=== PATIENT | male | born 1950 | race Caucasian/White ===

== ENCOUNTER → 2023-09-30 16:31 | Outpatient (AMB) | payer OTHER, SELFPAY ==
--- NOTE | 2023-09-30 16:33 | AM.OFFWIN_ITS ---
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 Pt is originally from [facility] - here in [facility] to visit Son and . He was recently admitted in the hospital for pneumonia while in [place] for 6 days. Pt reports felt better for few weeks, but continued to have productive cough. He has h/o COPD and currently uses daily inhalers (Pt presents medication containers during the visit). PFSH Social History Patient Tobacco Use Status: Never used Tobacco Review of Systems Const All systems reviewed & are unremarkable except as noted in HPI and below Physical Exam Vital Signs: Last Vital Signs Pulse 48 L 09/30/23 16:36 BP 118/76 09/30/23 16:36 Pulse Ox 85 L 09/30/23 16:36 Const General: comfortable and no acute distress Nutritional Appearance: thin Orientation/consciousness: patient oriented x3 Resp Other: Unable to hear lung sounds back lower lobes. Clear sounds Upper lobes. Effort & Inspection: normal respiratory effort, able to speak in complete sentences and Actively coughing Quality: wet Auscultation: rhonchi and diminished lung sounds (lower lobes.) Cardio Rate: regular rate Rhythm: regular rhythm Neuro General: patient oriented x3, gait normal and moves all extremities Psych Speech and movement: Normal speech and movement present Assessment & Plan Assessment & Plan (1) Cough in adult: Code(s): R05.9 - Cough, unspecified Plan: - Unable to fully assess lung sounds. Due to language barrier, Pt unable to follow commands accordingly. He is able to talk in complete sentences without SOB. - Ordered chest X[facility] to be [facility] ([facility] in Xray closed at 1700). - Will call Pt tomorrow after Xray results and discuss Tx plan. - Pt currently has medications from [place], Orders: Orders XR chest 2V Today R05.9 - Cough, unspecified Medications: New azithromycin 500 mg PO DAILY 3 tabs 0RF 3 days R05.9 - Cough, unspecified doxycycline hyclate 100 mg PO BID 20 caps 0RF 10 days R05.9 - Cough, unspecified Coding Level of Care Code New Pt Level 3 (21129) Diagnoses Cough in adult R05.9 Time Spent (min) 15
[2023-09-30 16:36] VITALS: BP 118/76; PULSE 48; O2SAT 85
== END ==
PROVIDERS: Visit Provider Nurse Practitioner Family
DX: R05.9 Cough, unspecified (principal)
CPT/HCPCS: 99203

== ENCOUNTER 2023-10-01 08:52 | Outpatient (REF) | payer OTHER, SELFPAY ==
--- NOTE | ~2023-10-01 | XR_ITS ---
EXAMINATION: XR CHEST CLINICAL INFORMATION: Chronic productive cough. COMPARISON: None available. TECHNIQUE: 2 views of the chest were obtained. FINDINGS: The lungs are hyperexpanded with flattening of the hemidiaphragms. Coarse and heterogeneous opacities bilaterally are nonspecific. Left lower lobe consolidation. Bibasilar atelectasis. No pleural effusion. XR/XR chest 2V IMPRESSION: Left lower lobe pneumonia. Follow-up until resolution is advised.
== END 2023-10-01 08:53 | disposition home or self-care (01) ==
LOC: HO.HMGCX 08:52
PROVIDERS: Visit Provider Nurse Practitioner Family
DX: R05.9 Cough, unspecified (principal)
CPT/HCPCS: 71046

== ENCOUNTER 2023-10-11 09:41 | Emergency (ER) | payer OTHER, SELFPAY ==
--- NOTE | ~2023-10-11 | XR_ITS ---
EXAMINATION: XR CHEST CLINICAL INFORMATION: Reason for Exam shortness of breath and cough COMPARISON: Chest radiograph 10/01/2023 TECHNIQUE: 2 views of the chest FINDINGS: Lines and tubes: None. Emphysema. Similar appearance of left basilar consolidation suggesting infection or aspiration with possible associated trace parapneumonic effusion similar to prior. No pneumothorax. Unchanged cardiomediastinal silhouette. XR/XR chest 2V IMPRESSION: 1. Similar appearance of left basilar consolidation suggesting infection or aspiration with possible associated trace parapneumonic effusion similar to prior. Recommend follow-up radiographs in 6-8 weeks to ensure resolution. 2. Emphysema.
[2023-10-11 09:55] VITALS: BP 87/55; PULSE 91; RESP 20; TEMP 36.3; O2SAT 94; BMI 18.4
--- NOTE | 2023-10-11 10:03 | PC.NURSE ---
patient states he bp is typically low
[2023-10-11 14:29] VITALS: BP 108/70; PULSE 85; RESP 18; TEMP 36.4; O2SAT 94
--- NOTE | 2023-10-11 14:48 | ED_ITS ---
HPI - General Adult General Chief complaint: Dyspnea Stated complaint: fever SOB tired Time Seen by Provider: 10/11/23 14:44 Source: patient Mode of arrival: ambulatory Limitations: no limitations History of Present Illness ED Provider: Dr. Bucio HPI narrative: Patient had a history of COPD and CAD with stent, he is on MDIs and at times he has needed steroids. Patient flew from [place] and 10 days ago he was placed on doxy and Augmentin for left lower lobe infiltrate. He has improved greatly but is still coughing yellow green at times and felt like he had a fever 2 days ago. Onset (ago): week(s) Severity: mild Related Data Home Medications ?Medication ?Instructions ?Recorded ?Confirmed atorvastatin 40 mg tablet 40 mg PO BEDTIME 09/30/23 bisoprolol fumarate 5 mg tablet 1.25 mg PO DAILY 09/30/23 clopidogrel 75 mg tablet 75 mg PO DAILY 09/30/23 Previous Rx's ?Medication ?Instructions ?Recorded amoxicillin 875 mg-potassium 1 tab PO BID 10 days #20 tabs 10/01/23 clavulanate 125 mg tablet azithromycin 500 mg tablet 500 mg PO DAILY 3 days #3 tabs 10/01/23 prednisone 50 mg tablet 50 mg PO DAILY 5 days #5 tabs 10/01/23 levofloxacin 500 mg tablet 500 mg PO DAILY 10 days #10 tabs 10/11/23 Allergies Allergy/AdvReac Type Severity Reaction Status Date / Time No Known Allergies Allergy Verified 10/11/23 10:01 Review of Systems 2 Review of Systems: Yes all other systems are reviewed and are negative Neurologic: Denies Sensory deficit (Neuro) [facility] Social History Social History Patient Tobacco Use Status: Never used Tobacco Advance Directives: No Advance Directives Information Provided: Yes Do you have a plan to hurt others: No Plan Physical Exam ED Vital Signs: Vital Signs - 24 hr 10/11/23 09:55 10/11/23 14:29 Temperature 97.3 F 97.6 F Pulse Rate 91 85 Respiratory Rate 20 18 Blood Pressure 87/55 L 108/70 Pulse Oximetry 94 94 Oxygen Delivery Method Room Air Room Air BMI result Body Mass Index 18.4 Const Other: very thin male resting comfortably General: healthy appearing Nutritional Appearance: thin Orientation/consciousness: oriented to person and patient oriented x3 Limitations: no limitations HENMT Head: Yes normal to inspection Ears: external ears normal General nose exam: Normal external nose present Mouth: Normal oral and palatal mucosa present and oropharynx normal Throat: Yes posterior oropharynx normal Eyes General: appearance normal, both eyes and all related structures Neck Neck: Yes normal visual inspection Chest Chest palpation & inspection: normal inspection of the chest Resp Other: Distant, poor air movement at the bases Cardio Jugular venous distension: no JVD Rate: regular rate Rhythm: regular rhythm Heart sounds: S1 normal heart sound present and S2 normal heart sound present GI Inspection: Yes normal to inspection Palpation (GI): Soft to palpation, nontender and No hepatosplenomegaly present Auscultation: normal bowel sounds General: Yes no CVA tenderness Back/Spine/Pelvis Back: no CVA tenderness Skin General skin exam: no rashes or lesions noted Neuro General: oriented to person and patient oriented x3 Cranial nerves: Yes CN's II-XII intact bilaterally Motor exam (neuro): 5/5 motor strength present throughout Sensory Exam: No Sensory deficit (Neuro) Extrem General: Yes normal to inspection Psych Appearance: grossly normal Course Reevaluation(s) Reevaluation #1: Patient with left lower infiltrate on xray seems slightly improved from prior will start levaquin Time: 15:59 Medical Decision Making Differential Diagnosis Differential Diagnoses: The differential diagnosis associated with the presentation includes (pneumonia, copd exacerbation, cough) Admission/Observation Consideration of admission/observation: Escalation of care including admission/observation considered (upon arrival patient considered for admission) Lab Data 10/11/23 15:13 10/11/23 15:13 Labs: Lab Results 10/11/23 Range/Units 15:13 WBC 13.7 H (4.8-10.8) X10*3/uL RBC 4.82 (4.60-5.80) X10*6/uL Hgb 15.0 (14.0-18.0) g/dl Hct 45.1 (42.0-52.0) % MCV 93.6 (80.0-98.0) fL MCH 31.1 (27.0-33.0) pg MCHC 33.3 (31.0-36.0) g/dl RDW 13.8 (11.0-16.0) % Plt Count 274 (160-400) X10*3/uL MPV 9.2 L (9.4-12.4) fL Immature Gran % (Auto) 0.4 (0.0-0.4) % Neut % (Auto) 82.3 H (45-73) % Lymph % (Auto) 11.0 L (20-40) % [place] % (Auto) 5.3 (2-11) % Eos % (Auto) 0.8 (0-4) % Baso % (Auto) 0.2 (0-2) % Lymph # (Auto) 1.5 (1.2-4.9) X10*3/uL [place] # (Auto) 0.7 (0.1-1.2) X10*3/uL Eos # (Auto) 0.1 (0.0-0.4) X10*3/uL Baso # (Auto) 0.0 (0.0-0.2) X10*3/uL Abs Immat Gran (auto) 0.06 H (0.00-0.03) X10*3/uL Absolute Neuts (auto) 11.3 H (2.0-8.3) x10*3/uL Absolute Nucleated RBC 0.000 (0.0-0.012) X10*3/uL Nucleated RBC % (auto) 0.0 (0.0-0.2) /100WBC Sodium 139 (135-145) mmol/L Potassium 4.9 (3.3-5.1) mmol/L Chloride 104 (96-108) mmol/L Carbon Dioxide 27 (22-29) mmol/L Anion Gap 13 (12-20) BUN 26 H (9-16) mg/dL Creatinine 1.02 (0.5-1.4) mg/dL Estim Creat Clear Calc 57.4 Estimated GFR > 60 Random Glucose 93 (60-115) mg/dL Calcium 9.1 (8.4-10.2) mg/dL Independent Interpretation I performed an independent interpretation of an: Plain X-Ray (left lower infiltrate) Independent Historian Clinical information obtained from an independent historian. History obtained from or confirmed by: Spouse External Record Review External record reviewed: Outpatient record and Prior outpatient radiology Chronic Conditions Patient?s care impacted by: Other (COPD ) Social Determinants Patient?s care significantly limited by Social Determinants of Health including: Other Social Determinant of Health (smoker) Discharge Plan Discharge Clinical Impression: Pneumonia Patient Disposition: Home, Self-Care Instructions: Community Acquired Pneumonia (ED) Prescriptions: New levofloxacin 500 mg tablet 500 mg PO DAILY 10 Days Qty: 10 0RF No Action clopidogrel 75 mg tablet 75 mg PO DAILY bisoprolol fumarate 5 mg tablet 1.25 mg PO DAILY atorvastatin 40 mg tablet 40 mg PO BEDTIME azithromycin 500 mg tablet 500 mg PO DAILY 3 Days Qty: 3 0RF prednisone 50 mg tablet 50 mg PO DAILY 5 Days Qty: 5 0RF amoxicillin-pot clavulanate 875-125 mg tablet 1 tab PO BID 10 Days Qty: 20 0RF Referrals: Physician,Unknown J [Primary Care Provider] - 1 week Print Language: Malagasy
[2023-10-11 15:17] LABS: MANUAL DIFF FLAG NO
[2023-10-11 15:19] LABS: Basophils Percent Auto 0.2 % (0-2); Eosinophils Absolute Auto 0.1 X10*3/uL (0.0-0.4); Eosinophils Percent Auto 0.8 % (0-4); Hematocrit 45.1 % (42.0-52.0); Imm Gran Abs Auto 0.06 X10*3/uL (0.00-0.03); Imm Gran Pct Auto 0.4 % (0.0-0.4); Lymphocytes Absolute Auto 1.5 X10*3/uL (1.2-4.9); Mean Corpuscular HGB Conc 33.3 g/dl (31.0-36.0); Mean Corpuscular Hemoglobin 31.1 pg (27.0-33.0); Mean Corpuscular Volume 93.6 fL (80.0-98.0); Mean Platelet Volume 9.2 fL (9.4-12.4); Monocytes Absolute Auto 0.7 X10*3/uL (0.1-1.2); Monocytes Percent Auto 5.3 % (2-11); Neutrophils Absolute Auto 11.3 x10*3/uL (2.0-8.3); Neutrophils Percent Auto 82.3 % (45-73); Platelet Count 274 X10*3/uL (160-400); Red Blood Count 4.82 X10*6/uL (4.60-5.80); Red Cell Distribution Width 13.8 % (11.0-16.0); White Blood Count 13.7 X10*3/uL (4.8-10.8)
[2023-10-11 15:40] LABS: Anion Gap 13 (12-20); Blood Urea Nitrogen 26 mg/dL (9-16); Calcium 9.1 mg/dL (8.4-10.2); Carbon Dioxide 27 mmol/L (22-29); Chloride 104 mmol/L (96-108); Creatinine Clr Calc Pharmacy 57.4; Estimated Glomerular Filt Rate > 60; Glucose Random 93 mg/dL (60-115); Potassium 4.9 mmol/L (3.3-5.1); Sodium 139 mmol/L (135-145)
[2023-10-11 16:31] VITALS: BP 98/70; PULSE 99; RESP 16; TEMP 36.6; O2SAT 95
[2023-10-11] MEDS: levoFLOXacin 500 MG TABLET PO (16:33)
== END 2023-10-11 16:57 | disposition home or self-care (01) ==
PROVIDERS: Emergency Provider Emergency Medicine
DX: J18.9 Pneumonia, unspecified organism (principal)
CPT/HCPCS: 36415; 71046; 80048; 85025; 99283

== ENCOUNTER 2023-10-20 16:58 | Emergency (ER) | payer OTHER, SELFPAY ==
[2023-10-20 17:52] VITALS: BP 89/57; PULSE 56; RESP 16; TEMP 36.3; O2SAT 94; BMI 13.9
--- NOTE | 2023-10-20 17:52 | ED_ITS ---
HPI - General Adult General Chief complaint: Urogenital-Male Stated complaint: difficulty urinating - seen here last week Time Seen by Provider: 10/20/23 21:09 Source: patient Mode of arrival: ambulatory History of Present Illness ED Provider: Dr Morocho HPI narrative: 73-year-old male with history of CAD, BPH, and has recently been treated for pneumonia, he is visiting from [place] and has [place] the past 3 weeks and currently has complaints regarding urinary frequency and suprapubic discomfort without fever/chills/nausea/vomiting but does endorse that he has recently been experiencing constipation. Related Data Home Medications ?Medication ?Instructions ?Recorded ?Confirmed atorvastatin 40 mg tablet 40 mg PO BEDTIME 09/30/23 bisoprolol fumarate 5 mg tablet 1.25 mg PO DAILY 09/30/23 clopidogrel 75 mg tablet 75 mg PO DAILY 09/30/23 Previous Rx's ?Medication ?Instructions ?Recorded amoxicillin 875 mg-potassium 1 tab PO BID 10 days #20 tabs 10/01/23 clavulanate 125 mg tablet azithromycin 500 mg tablet 500 mg PO DAILY 3 days #3 tabs 10/01/23 prednisone 50 mg tablet 50 mg PO DAILY 5 days #5 tabs 10/01/23 levofloxacin 500 mg tablet 500 mg PO DAILY 10 days #10 tabs 10/11/23 Allergies Allergy/AdvReac Type Severity Reaction Status Date / Time No Known Allergies Allergy Verified 10/20/23 17:53 Review of Systems 2 Review of Systems: Pertinent positives and negatives as stated in HPI PMF Past Medical History Source: nursing notes reviewed Social History Social History Patient Tobacco Use Status: Never used Tobacco Smoked in Last 30 Days: Yes Use of substances other than those prescribed or required for medical reasons: No Advance Directives: No Advance Directives Information Provided: No Do you have a plan to hurt others: No Plan Physical Exam ED Vital Signs: Vital Signs - 24 hr 10/20/23 17:52 10/20/23 21:20 Temperature 97.4 F 97.3 F Pulse Rate 56 98 Respiratory Rate 16 18 Blood Pressure 89/57 L 113/78 Pulse Oximetry 94 98 Oxygen Delivery Method Room Air Room Air BMI result Body Mass Index 13.9 VITAL SIGNS: Reviewed. GENERAL: Well developed, well nourished, in no acute distress. HEAD: Normocephalic/atraumatic EYES: PERRLA, EOMI EARS: Ext canals without abnormality NOSE: Nares patent bilateral OROPHARYNX: no oral lesions noted, posterior pharynx clear NECK: Supple, no adenopathy LUNGS: Normal breath sounds. No adventitious sounds or accessory muscle use. SpO2<98> CARDIOVASCULAR: Regular rate and rhythm without noted murmurs ABDOMEN: Soft, non-tender, non-distended with bowel sounds. MUSCULOSKELETAL: No tenderness, deformities, or effusions noted on gross inspection. EXTREMITIES: No cyanosis, clubbing or edema. SKIN: Inspection of the skin reveals no rashes NEUROLOGIC: Alert and oriented x 4. Strength and sensation to light touch were grossly intact x 4. Course Course Course Narrative: This is a rapid medical exam performed by Dennis Morris NP: Additional HPI, ROS, PE not included below will be deferred to primary provider. Patient is a 73-year-old male with history of COPD, CAD with stent, left nephrectomy, TURP presenting to the ED with complaint of difficulty urinating, constipation. Follows with urologist in [facility], here visiting son. Treated with Levaquin for pna on 10/10. Denies hematuria or flank pain. Pain to suprapubic area. Bladder scan 198mLs in triage. BP low in triage, patient states he typically runs low, similar BP at previous visit. Plan: UA, labs, bladder scan Medical Decision Making Medical Decision Making [facility] Narrative: 73-year-old male with history and clinical presentation, DDX: Urinary retention, urinary tract infection, symptomatic dysuria secondary to constipation with underlying BPH. Bladder scan-191 and then patient was able to void without difficulty. I reviewed all investigations and hematologic indices are negative for leukocytosis/anemia/thrombocytopenia. Coagulation studies are within normal limits. Chemistry indices negative for EULALIO/electrolyte or liver enzyme derangements. Urinalysis shows some leukocyte esterase. There is no evidence of urinary tract infection or urinary retention, patient was given instructions regarding treatment of constipation with MiraLax in the short term and buttermaker change in dietary intake with increased water/raw fruits and vegetables. Differential Diagnosis Differential Diagnoses: The differential diagnosis associated with the presentation includes Please see the discussion above Admission/Observation Consideration of admission/observation: Escalation of care including admission/observation considered Please see the discussion above Lab Data [facility] Lab Attestation statement: I reviewed the patient's lab results. Please see the discussion above 10/20/23 18:07 10/20/23 18:07 Labs: Lab Results 10/20/23 10/20/23 Range/Units 18:07 21:46 WBC 7.9 (4.8-10.8) X10*3/uL RBC 4.79 (4.60-5.80) X10*6/uL Hgb 14.9 (14.0-18.0) g/dl Hct 45.3 (42.0-52.0) % MCV 94.6 (80.0-98.0) fL MCH 31.1 (27.0-33.0) pg MCHC 32.9 (31.0-36.0) g/dl RDW 14.1 (11.0-16.0) % Plt Count 203 D (160-400) X10*3/uL MPV 9.4 (9.4-12.4) fL Immature Gran % (Auto) 0.4 (0.0-0.4) % Neut % (Auto) 67.4 (45-73) % Lymph % (Auto) 21.6 (20-40) % [place] % (Auto) 8.4 (2-11) % Eos % (Auto) 1.8 (0-4) % Baso % (Auto) 0.4 (0-2) % Lymph # (Auto) 1.7 (1.2-4.9) X10*3/uL [place] # (Auto) 0.7 (0.1-1.2) X10*3/uL Eos # (Auto) 0.1 (0.0-0.4) X10*3/uL Baso # (Auto) 0.0 (0.0-0.2) X10*3/uL Abs Immat Gran (auto) 0.03 (0.00-0.03) X10*3/uL Absolute Neuts (auto) 5.3 (2.0-8.3) x10*3/uL Absolute Nucleated RBC 0.000 (0.0-0.012) X10*3/uL Nucleated RBC % (auto) 0.0 (0.0-0.2) /100WBC PT 12.3 (11.1-13.3) SEC INR 1.0 (0.9-1.1) Sodium 140 (135-145) mmol/L Potassium 4.7 (3.3-5.1) mmol/L Chloride 105 (96-108) mmol/L Carbon Dioxide 27 (22-29) mmol/L Anion Gap 13 (12-20) BUN 26 H (9-16) mg/dL Creatinine 0.98 (0.5-1.4) mg/dL Estim Creat Clear Calc 45.5 Estimated GFR > 60 Random Glucose 83 (60-115) mg/dL Calcium 9.0 (8.4-10.2) mg/dL Total Bilirubin 0.5 (0.0-1.0) mg/dL AST 22 (5-37) U/L ALT 20 (0-40) U/L Alkaline Phosphatase 124 H (39-117) U/L Total Protein 6.5 (6.5-8.0) g/dL Albumin 3.6 (3.5-5.0) g/dL Urine Color Yellow Urine Appearance Clear Urine pH 6.5 (5.0-9.0) Ur Specific [place] 1.015 (1.005-1.025) Urine Protein Negative (Neg-Trace) mg/dL Urine Glucose (UA) Negative (Negative) mg/dL Urine Ketones Negative (Negative) mg/dL Urine Blood Negative (Negative) Urine Nitrite Negative (Negative) Ur Leukocyte Esterase Small (1+) H (Negative) External Record Review External record reviewed: Outpatient record and Prior outpatient labs Chronic Conditions Patient?s care impacted by: Hypertension and Other CAD Critical Care Time Critical Care Time Critical Care Time: Yes Total Critical Care Time: 45 Attestation: I personally attest to this time spent taking care of the patient. Discharge Plan Discharge Clinical Impression: Constipation, Dysuria, Benign prostatic hyperplasia Patient Disposition: Home, Self-Care Instructions: Constipation (ED), Dysuria (ED), Enlarged Prostate (BPH) (ED), High Fiber Diet (ED) Additional Instructions: 1. Resume all home medications as prescribed. 2. Recommend increasing water intake, increase in raw fruits and vegetables and in the short term recommend [id number] MiraLax this is available in all [facility]. 3. Do not hesitate to return to the emergency room for any acute worsening of your symptoms. Prescriptions: No Action levofloxacin 500 mg tablet 500 mg PO DAILY 10 Days Qty: 10 0RF clopidogrel 75 mg tablet 75 mg PO DAILY bisoprolol fumarate 5 mg tablet 1.25 mg PO DAILY atorvastatin 40 mg tablet 40 mg PO BEDTIME azithromycin 500 mg tablet 500 mg PO DAILY 3 Days Qty: 3 0RF prednisone 50 mg tablet 50 mg PO DAILY 5 Days Qty: 5 0RF amoxicillin-pot clavulanate 875-125 mg tablet 1 tab PO BID 10 Days Qty: 20 0RF Print Language: Montenegrin
[2023-10-20 18:12] LABS: MANUAL DIFF FLAG NO
[2023-10-20 18:20] LABS: Prothrombin Time 12.3 SEC (11.1-13.3)
[2023-10-20 18:24] LABS: Basophils Percent Auto 0.4 % (0-2); Eosinophils Absolute Auto 0.1 X10*3/uL (0.0-0.4); Eosinophils Percent Auto 1.8 % (0-4); Hematocrit 45.3 % (42.0-52.0); Hemoglobin 14.9 g/dl (14.0-18.0); Imm Gran Abs Auto 0.03 X10*3/uL (0.00-0.03); Imm Gran Pct Auto 0.4 % (0.0-0.4); Lymphocytes Absolute Auto 1.7 X10*3/uL (1.2-4.9); Lymphocytes Percent Auto 21.6 % (20-40); Mean Corpuscular HGB Conc 32.9 g/dl (31.0-36.0); Mean Corpuscular Hemoglobin 31.1 pg (27.0-33.0); Mean Corpuscular Volume 94.6 fL (80.0-98.0); Mean Platelet Volume 9.4 fL (9.4-12.4); Monocytes Absolute Auto 0.7 X10*3/uL (0.1-1.2); Monocytes Percent Auto 8.4 % (2-11); Neutrophils Absolute Auto 5.3 x10*3/uL (2.0-8.3); Neutrophils Percent Auto 67.4 % (45-73); Platelet Count 203 X10*3/uL (160-400); Red Blood Count 4.79 X10*6/uL (4.60-5.80); Red Cell Distribution Width 14.1 % (11.0-16.0); White Blood Count 7.9 X10*3/uL (4.8-10.8)
[2023-10-20 18:29] LABS: Alanine Aminotransferase 20 U/L (0-40); Albumin Level 3.6 g/dL (3.5-5.0); Alkaline Phosphatase 124 U/L (39-117); Anion Gap 13 (12-20); Aspartate Amino Transferase 22 U/L (5-37); Bilirubin Total 0.5 mg/dL (0.0-1.0); Blood Urea Nitrogen 26 mg/dL (9-16); Carbon Dioxide 27 mmol/L (22-29); Chloride 105 mmol/L (96-108); Creatinine Clr Calc Pharmacy 45.5; Estimated Glomerular Filt Rate > 60; Glucose Random 83 mg/dL (60-115); Potassium 4.7 mmol/L (3.3-5.1); Sodium 140 mmol/L (135-145); Total Protein 6.5 g/dL (6.5-8.0)
[2023-10-20 21:20] VITALS: BP 113/78; PULSE 98; RESP 18; TEMP 36.3; O2SAT 98
--- NOTE | 2023-10-20 21:48 | PC.NURSE ---
this rn assumed care of pt, pt from home, a&ox4, respirations even and unlabored, reporting onset of urinary retention and burning with urination starting 3 days ago. pt reports intermittent lower abdominal pain with constipation, reports last BM was yesterday which was small and hard. pt denies cp n/v/d.
[2023-10-20 21:59] LABS: Appearance Urine Clear; Color Urine Yellow; Glucose Urine UA Negative (Negative); Leukocyte Esterase Urine Small (1+) (Negative); Nitrite Urine Negative (Negative); PH 6.5 (5.0-9.0); Specific Gravity - Urine 1.015 (1.005-1.025); UMIC TRIGGER UACC YES; Urine Blood Negative (Negative); Urine Ketones Negative (Negative); Urine Protein Negative (Neg-Trace)
[2023-10-20 22:47] LABS: Bacteria Urine None Seen (None Seen); Hyaline Casts Urine 0-2 /LPF (0-2); RBC Urine 0-2 /HPF (0-2); Squamous Epithelial Cell Urine 0-2 /HPF (0-2); UACC Culture Trigger YES
[2023-10-20 22:49] VITALS: BP 113/78; PULSE 98; RESP 18; TEMP 36.3; O2SAT 98
== END 2023-10-20 22:50 | disposition home or self-care (01) ==
PROVIDERS: Registered Nurse Emergency; Emergency Provider Student in an Organized Health Care Education/Training Program
DX: K59.00 Constipation, unspecified (principal); R30.0 Dysuria; N40.0 Benign prostatic hyperplasia without lower urinary tract symptoms; R35.0 Frequency of micturition; J44.9 Chronic obstructive pulmonary disease, unspecified
CPT/HCPCS: 36415; 51798; 80053; 81001; 81003; 85025; 85610; 87086; 99283; 99285